=== PATIENT | female | born 1940 | race Caucasian/White ===

== ENCOUNTER 2019-04-20 07:55 | Day surgery (SDC) | payer MEDICARE ==
[~2019-04-20] VITALS: Ht 162.6 cm; Wt 46.8 kg
[~2019-04-20 07:55] MED LIST: ASPI-555 PO; AZAT50TA PO; LATA2.5D2 OU; LEVO25TA54 PO; RANI-248 PO; SODIUM CHLORIDE 0.9% 1000ML 1,000 ML IV ONE; TYL3 PO; [UNRECOGNIZED DRUG - OTHER] OU
[2019-04-20] MEDS ORDERED: PROPOFOL 10 MG/ML 20ML VIAL IV ONE ×2 (10:14)
[2019-04-20] MEDS ORDERED: GLYCOPYRROLATE 0.2 MG/ML 5 ML VIAL ONE (10:15)
[2019-04-20] MEDS ORDERED: PHENYLEPHRINE HCL 10 MG/ML 1ML VIAL IV ONE (10:27)
[2019-04-20 10:44] VITALS: BP_SYST 81; BP_DIAS 24; BP_DIAS 32
[2019-04-20 10:48] VITALS: BP 81/24
[2019-04-20 10:52] VITALS: BP 83/27
[2019-04-20 11:03] VITALS: BP 95/45
[2019-04-20 11:09] VITALS: BP 91/45
[2019-04-20 11:10] VITALS: BP 109/52
== END 2019-04-20 11:29 | disposition home or self-care (01) ==
LOC: ENDO 07:55 → DAH 07:55 → ENDO 11:29
PROVIDERS: ATTEND Internal Medicine
DX: Z12.11 Encounter for screening for malignant neoplasm of colon (principal); K57.30 Diverticulosis of large intestine without perforation or abscess without bleeding; K64.0 First degree hemorrhoids; M06.9 Rheumatoid arthritis, unspecified; F15.90 Other stimulant use, unspecified, uncomplicated; E03.9 Hypothyroidism, unspecified; M19.90 Unspecified osteoarthritis, unspecified site; H40.9 Unspecified glaucoma; Z79.899 Other long term (current) drug therapy; Z72.89 Other problems related to lifestyle; Z79.82 Long term (current) use of aspirin
CPT/HCPCS: 45380; A4606; J2370; J2704 ×2; J3490; J7030

== ENCOUNTER 2019-09-19 09:38 | Emergency (ER) | payer MEDICARE ==
[~2019-09-19 09:38] MED LIST changes: -RANI-248 PO; +RANI-662 PO; -SODIUM CHLORIDE 0.9% 1000ML 1,000 ML IV ONE
== END 2019-09-19 11:45 | disposition home or self-care (01) ==
LOC: EDH 09:38
DX: S00.03XA Contusion of scalp, initial encounter (principal); S30.0XXA Contusion of lower back and pelvis, initial encounter; E03.9 Hypothyroidism, unspecified; M06.9 Rheumatoid arthritis, unspecified; W11.XXXA Fall on and from ladder, initial encounter; Y93.89 Activity, other specified; Y92.89 Other specified places as the place of occurrence of the external cause; Y99.8 Other external cause status
CPT/HCPCS: 70450; 71046; 72170